=== PATIENT | male | born 1960 | race Caucasian/White ===

== ENCOUNTER 2021-10-25 20:09 | Emergency (ER) | payer MEDICARE ==
[2021-10-25] MEDS ORDERED: DUONEB 0.5-3 MG/3 ml Neb IH ONE ×2 (20:18→20:32)
[2021-10-25] MEDS ORDERED: solu-MEDROL 125 MG, Sterile H2O 10 ml 2 ML IV ONE ×2 (20:32)
[2021-10-25 20:33] LABS: A-aADO2 104; ABG HEMOGLOBIN 17.7; ABG POTASSIUM 3.3 (3.5-5.1); ARTERIAL BLD GAS O2 SATURATION 89.2 % (95-100); ARTERIAL BLOOD GAS BASE EXCESS 14.9 (-2.0-2.0); ARTERIAL BLOOD GAS FIO2 32 %; ARTERIAL BLOOD GAS PCO2 55 mmHg (35-45); ARTERIAL BLOOD GAS PO2 55 mmHg (75-100); ARTERIAL BLOOD GAS pH 7.48 (7.35-7.45); CARBOXYHEMOGLOBIN 2.1 % THgb (0.0-6.9); HGB O2 SAT 86.5 g/dF (94-100); Methhemoglobin 0.9 % (1.4-1.5)
[2021-10-25 20:34] LABS: ABG SITE RIGHT BRACHIAL
[2021-10-25 21:01] LABS: Absolute Neutrophil Ct (ANC) 5.03 (1.4-6.9); Basophil (Absolute #) 0.01 (0-0.4); Eosinophil % 0.1 % (0.00-5.0); Eosinophil (Absolute #) 0.01 (0-0.5); Hematocrit 56.9 % (42-50); Hemoglobin 18.1 gm/dl (12.5-18.0); Lymphocyte (Absolute #) 0.77 (1.0-4.6); Lymphocytes % 11.5 % (24.0-44.0); Mean Cell Volume 94.4 fl (78-100); Mean Corpuscular Hgb Concent. 31.8 g/dl (32-36); Mean Platelet Volume 9.4 fl (7.5-11.0); Monocyte (Absolute #) 0.87 (0.0-1.3); Neutrophil % 75.3 % (36.0-66.0); Platelet Count 184 K/mm3 (150-450); Red Blood Count 6.03 M/mm3 (4.1-5.6); Red Cell Distribution Width 13.8 % (11.5-14.0); White Blood Count 6.7 K/mm3 (4.0-10.5)
[2021-10-25] MEDS ORDERED: solu-MEDROL ONE (21:04)
[2021-10-25] MEDS ORDERED: Sterile H2O 10 ml IJ ONE (21:04)
[2021-10-25] MEDS ORDERED: Zithromax 500 MG/ 250 ML NaCl Premix 500 MG/250 ML IVPB IV STA (21:16)
[2021-10-25] MEDS ORDERED: ROCEPHIN 2 Gm-D5w 50ML BAG** 2 G/50 ML IVPB IV STA (21:16)
[2021-10-25 21:32] LABS: ALBUMIN 3.6 g/dL (3.5-5.0); ALKALINE PHOSPHATASE 54 U/L (38-126); ANION GAP 11.1 MEQ/L (5-15); BLOOD UREA NITROGEN 27 mg/dL (9-20); CHLORIDE 92 mmol/L (98-107); Calcium 8.1 mg/dL (8.4-10.2); Carbon Dioxide 38 mmol/L (22-30); Creatinine 1 0.99 mg/dL (0.66-1.25); EST GLOMERULAR FILTRATION RATE > 60.0 ML/MIN; Glucose 125 mg/dL (74-106); MAGNESIUM 2.4 mg/dL (1.6-2.3); NT PRO BNP 1000 pg/mL (0-900); Potassium 3.7 mmol/L (3.5-5.1); SGOT/AST 54 U/L (17-59); SGPT/ALT 26 U/L (0-50); SODIUM 138 mmol/L (137-145); Total Protein 6.9 g/dL (6.3-8.2)
[2021-10-25] MEDS ORDERED: ROCEPHIN 2 Gm-D5w 50ML BAG** 2 G/50 ML IVPB IV ONE (21:41)
[2021-10-25] MEDS ORDERED: Zithromax 500 MG/ 250 ML NaCl Premix 500 MG/250 ML IVPB IV ONE (21:41)
--- NOTE | 2021-10-25 21:58 | ERPHSYRPT ---
- History of Present Illness Time Seen by Provider: 10/25/21 20:16 Source: patient Exam Limitations: no limitations Patient Subjective Stated Complaint: "My oxygen is low at home." Triage Nursing Assessment: 61 y/o obese white male with PMH significant for COPD, CHF, asthma, and hypertension who requires supplemental home oxygen at 3 L/min via [place] present with reported increased dyspnea. He took a home COVID 19 binax test on 10/21/21 which was positive. He reported that he was monitoring his pulse oximetry at home which was running in the 70 - 80% range this morning. He denied headache, visual disturbances, chest pain, N/V/D, abdominal pain, dysuria, or hematochezia. Pupils 4mm bilateral. Symmetrical chest expansion. heart tones S1/S2 irregularly irregular without extra sounds. Lungs with significant inspiratory/expiratory wheezes bilaterally. Abdomen morbidly obese, non-distended and without peritoneal signs. Peripheral pulses +3 bilaterall. No noted dependent edema. Physician History: 61 years old male with history of COPD, asthma, chronic respiratory failure on 3 L oxygen, hypertension, obstructive sleep apnea, unvaccinated for COVID-19 presented in the ER with almost 2 weeks history of increasing cough and shortness of breath. He took his home COVID-19 test which was +4 days ago. He is monitoring his oxygen at home and reported since morning his oxygen is dropping and 70%. Patient reports minimal productive cough and wheezing and hurting to take a deep breath with some chest tightness and pressure. Subjective feeling of fever and chills. Timing/Duration: week(s) (2), gradual onset, worse Activities at Onset: activity, rest Severity of Dyspnea-Max: severe Severity of Dyspnea-Current: severe Modifying Factors: Improves With: oxygen, rest. Worsens With: activity, coughing Associated Symptoms: anxiety, cough, chest pain/discomfort, wheezing, painful breathing, productive cough, tightness Allergies/Adverse Reactions: No Known Drug Allergies Allergy (Unverified 10/25/21 20:13) Home Medications: Albuterol 17 gm IH Q6HPRN PRN 05/21/21 [History] Albuterol 2.5 mg/3 ml Neb [Proventil 2.5 mg/3 ml Neb] 2.5 mg IH DAILY PRN PRN 05/21/21 [History] Atorvastatin Calcium [Lipitor] 20 mg PO DAILY 05/21/21 [History] Diltiazem HCl [Diltiazem ER] 60 mg PO TID 05/21/21 [History] Hydrochlorothiazide 25 mg [hydroDIURIL 25 MG] 25 mg PO DAILY 05/21/21 [History] Metoprolol Tartrate 50 mg [Lopressor 50 MG] 50 mg PO BID 05/21/21 [History] Famotidine 40 mg PO DAILY 10/25/21 [History] Hx Tetanus, Diphtheria Vaccination/Date Given: No Travel Risk - International Travel Have you traveled outside of the country in past 3 weeks: No - Coronavirus Screening Are you exhibiting any of the following symptoms?: Yes Symptoms: Cough: New Onset, Shortness of Breath Close contact with a COVID-19 positive Pt in past 14-21 Days: No - Vaccine Status Have you recieved a Covid-19 vaccination: No - Review of Systems Constitutional: Fever, Chills, Fatigue, Weakness Eyes: No Symptoms Ears, Nose, & Throat: No Symptoms Respiratory: Cough, Dyspnea, Dyspnea on Exertion (ROWE), Wheezing Abdominal/Gastrointestinal: No Symptoms Genitourinary Symptoms: No Symptoms Musculoskeletal: No Symptoms Skin: No Symptoms Neurological: No Symptoms Psychological: No Symptoms Endocrine: No Symptoms Hematologic/Lymphatic: No Symptoms Immunological/Allergic: No Symptoms - Past Medical History Pertinent Past Medical History: Yes Neurological History: No Pertinent History ENT History: Other Cardiac History: Congestive Heart Failure, Hypertension Respiratory History: Asthma, COPD, Sleep Apnea Endocrine Medical History: No Pertinent History Musculoskeletal History: Arthritis GI Medical History: No Pertinent History History: No Pertinent History Psycho-Social History: No Pertinent History Male Reproductive Disorders: No Pertinent History Other Medical History: issues with eyes floaters? 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 bilateral knee scopes, broken foot. - Social History Smoking Status: Former smoker Exposure to second hand smoke: Yes Drug Use: none Patient Lives Alone: No - Nursing Vital Signs Nursing Vital Signs: Initial Vital Signs Temperature 96.6 F 10/25/21 20:09 Pulse Rate 86 10/25/21 20:09 Respiratory Rate 28 H 10/25/21 20:09 Blood Pressure 110/57 10/25/21 20:09 O2 Sat by Pulse Oximetry 73 L 10/25/21 20:09 Pain Scale Pain Intensity 0 - Physical Exam General Appearance: no apparent distress, alert Eye Exam: PERRL/EOMI, eyes nml inspection Ears, Nose, Throat Exam: hearing grossly normal, normal ENT inspection, normal pharynx Neck Exam: normal inspection, non-tender, full range of motion Respiratory Exam: diminished breath sounds, accessory muscle use, crackles/rales, rhonchi, wheezing Cardiovascular/Chest Exam: normal heart sounds, regular rate/rhythm Abdominal/Gastrointestinal Exam: soft, normal bowel sounds Extremity Exam: non-tender, normal range of motion Neurologic Exam: alert, oriented x 3, cooperative, normal mood/affect Skin Exam: normal color SpO2 Interpretation: O2 applied SpO2: 95 O2 Delivery: Nasal Cannula - Course EKG Interpreted by Me: RATE ([id number]), Sinus Tach, NORMAL AXIS, NORMAL INTERVALS, Non-specific ST Changes Ordered Tests: Active Orders 24 hr Category Date Time Status Brick Veneer Maker STAT Care 10/25/21 20:33 Active EKG-ER Only STAT Care 10/25/21 20:32 Active IV Insertion STAT Care 10/25/21 20:32 Active CHEST 1 VIEW (PORTABLE) Stat Exams 10/25/21 20:33 Taken CHEST WITH CONTRAST [CT] Stat Exams 10/25/21 21:48 Taken ABG [ARTERIAL BLOOD GASES] Stat Lab 10/25/21 20:28 Completed BLOOD CULTURE Stat Lab 10/25/21 20:50 Received CBC W DIFF Stat Lab 10/25/21 20:40 Completed CMP Stat Lab 10/25/21 20:40 Completed D-DIMER QUANTITATIVE Stat Lab 10/25/21 20:40 Completed Lactic Acid Stat Lab 10/25/21 20:37 Completed MAGNESIUM Stat Lab 10/25/21 20:40 Completed NT PRO BNP Stat Lab 10/25/21 20:40 Completed TROPONIN Q3H Lab 10/25/21 20:40 Completed TROPONIN Q3H Lab 10/25/21 23:45 Ordered TROPONIN Q3H Lab 10/26/21 02:45 Ordered TROPONIN Q3H Lab 10/26/21 05:45 Ordered TROPONIN Q3H Lab 10/26/21 08:45 Ordered UA W/RFX UR CULTURE Stat Lab 10/25/21 20:32 Ordered BiPap/CPAP STAT RT 10/25/21 20:32 Active Oxygen Oxymask LPM 10 lpm RT 10/25/21 21:39 Active Respiratory Therapy Assessment DAILY RT 10/25/21 21:26 Active Medication Summary Discontinued Medications Generic Name Dose Route Start Last Admin Trade Name Dashawn PRN Reason Stop Dose Admin Albuterol/Ipratropium Confirm 10/25/21 20:18 Ipratropium/Albuterol Sulfate 3 Ml Ampul.Neb Administered 10/25/21 20:19 Dose 3 ml IH .STK-MED ONE Albuterol/Ipratropium 3 ml 10/25/21 20:32 10/25/21 20:35 Ipratropium/Albuterol Sulfate 3 Ml Ampul.Neb IH 10/25/21 20:33 3 ml STAT ONE Administration Methylprednisolone Sodium 0 mg 10/25/21 20:32 10/25/21 21:07 Succinate 125 mg/ Sterile IV 10/25/21 20:33 125 mg Water 2 ml STAT ONE Administration Azithromycin 500 mg in 250 mls @ 250 mls/hr 10/25/21 21:16 10/25/21 22:34 Zithromax 500 Mg/ 250 Ml Nacl Premix IV 10/25/21 22:15 250 ml/hr STAT STA 250 mls/hr Administration Ceftriaxone Sodium/Dextrose 2 g in 50 mls @ 100 mls/hr 10/25/21 21:16 10/25/21 23:01 Rocephin 2 Gm-D5w 50ml Bag IV 10/25/21 21:45 Infused STAT STA Infusion Azithromycin Confirm 10/25/21 21:41 Zithromax 500 Mg/ 250 Ml Nacl Premix Administered 10/25/21 21:42 Dose 500 mg in 250 mls @ ud IV .STK-MED ONE Ceftriaxone Sodium/Dextrose Confirm 10/25/21 21:41 Rocephin 2 Gm-D5w 50ml Bag Administered 10/25/21 21:42 Dose 2 g in 50 mls @ ud IV .STK-MED ONE Methylprednisolone Sodium Succinate Confirm 10/25/21 21:04 Methylprednis Sod Succ 125 Mg/2 Ml Vial Administered 10/25/21 21:05 Dose 125 mg .ROUTE .STK-MED ONE Sterile Water Confirm 10/25/21 21:04 Water For Injection,Sterile 10 Ml Vial Administered 10/25/21 21:05 Dose 10 ml IJ .ZAPR ONE Lab/Rad Data: Laboratory Result Diagrams 10/25/21 20:40 10/25/21 20:40 Laboratory Results 10/25/21 10/25/21 10/25/21 Range/Units 20:40 20:40 20:40 WBC (4.0-10.5) K/mm3 RBC (4.1-5.6) M/mm3 Hgb (12.5-18.0) gm/dl Hct (42-50) % MCV (78-100) fl MCH (26-32) pg MCHC (32-36) g/dl RDW (11.5-14.0) % Plt Count (150-450) K/mm3 MPV (7.5-11.0) fl Gran % (36.0-66.0) % Eos # (Auto) (0-0.5) Absolute Lymphs (auto) (1.0-4.6) Absolute Monos (auto) (0.0-1.3) Lymphocytes % (24.0-44.0) % Monocytes % (0.0-12.0) % Eosinophils % (0.00-5.0) % Basophils % (0.0-0.4) % Absolute Granulocytes (1.4-6.9) Basophils # (0-0.4) D-Dimer 1088 H* (215-500) ng/mL Puncture Site pCO2 (35-45) mmHg pO2 (75-100) mmHg Base Excess (-2.0-2.0) O2 Saturation (94-100) g/dF ABG pH (7.35-7.45) ABG HCO3 (22-28) ABG O2 Sat (Measured) (95-100) % Addison Test A-a Gradient a/A Ratio Hemoglobin Carboxyhemoglobin (0.0-6.9) % THgb Methemoglobin (1.4-1.5) % Potassium 3.7 (3.5-5.1) Temperature C POC O2 Flow Rate % Sodium 138 (137-145) mmol/L Chloride 92 L (98-107) mmol/L Carbon Dioxide 38 H (22-30) mmol/L Anion Gap 11.1 (5-15) MEQ/L BUN 27 H (9-20) mg/dL Creatinine 0.99 (0.66-1.25) mg/dL Estimated GFR > 60.0 ML/MIN Glucose 125 H (74-106) mg/dL Lactic Acid (0.4-2.0) Calcium 8.1 L (8.4-10.2) mg/dL Magnesium 2.4 H (1.6-2.3) mg/dL Total Bilirubin 1.40 H (0.2-1.3) mg/dL AST 54 (17-59) U/L ALT 26 (0-50) U/L Alkaline Phosphatase 54 (38-126) U/L Troponin I 0.022 (0.000-0.034) ng/mL NT-Pro-B Natriuret Pep 1000 H (0-900) pg/mL Serum Total Protein 6.9 (6.3-8.2) g/dL Albumin 3.6 (3.5-5.0) g/dL 10/25/21 10/25/21 10/25/21 Range/Units 20:40 20:37 20:28 WBC 6.7 (4.0-10.5) K/mm3 RBC 6.03 H (4.1-5.6) M/mm3 Hgb 18.1 H (12.5-18.0) gm/dl Hct 56.9 H (42-50) % MCV 94.4 (78-100) fl MCH 30.0 (26-32) pg MCHC 31.8 L (32-36) g/dl RDW 13.8 (11.5-14.0) % Plt Count 184 (150-450) K/mm3 MPV 9.4 (7.5-11.0) fl Gran % 75.3 H (36.0-66.0) % Eos # (Auto) 0.01 (0-0.5) Absolute Lymphs (auto) 0.77 L (1.0-4.6) Absolute Monos (auto) 0.87 (0.0-1.3) Lymphocytes % 11.5 L (24.0-44.0) % Monocytes % 13.0 H (0.0-12.0) % Eosinophils % 0.1 (0.00-5.0) % Basophils % 0.1 (0.0-0.4) % Absolute Granulocytes 5.03 (1.4-6.9) Basophils # 0.01 (0-0.4) D-Dimer (215-500) ng/mL Puncture Site RIGHT BRACHIAL pCO2 55 H (35-45) mmHg pO2 55 L (75-100) mmHg Base Excess 14.9 H (-2.0-2.0) O2 Saturation 86.5 L (94-100) g/dF ABG pH 7.48 H (7.35-7.45) ABG HCO3 41.0 H* (22-28) ABG O2 Sat (Measured) 89.2 L (95-100) % Addison Test NOT APPLICABLE A-a Gradient 104 a/A Ratio 0.35 Hemoglobin 17.7 Carboxyhemoglobin 2.1 (0.0-6.9) % THgb Methemoglobin 0.9 L (1.4-1.5) % Potassium 3.3 L (3.5-5.1) Temperature 37.0 C POC O2 Flow Rate 32 % Sodium (137-145) mmol/L Chloride (98-107) mmol/L Carbon Dioxide (22-30) mmol/L Anion Gap (5-15) MEQ/L BUN (9-20) mg/dL Creatinine (0.66-1.25) mg/dL Estimated GFR ML/MIN Glucose (74-106) mg/dL Lactic Acid 1.9 (0.4-2.0) Calcium (8.4-10.2) mg/dL Magnesium (1.6-2.3) mg/dL Total Bilirubin (0.2-1.3) mg/dL AST (17-59) U/L ALT (0-50) U/L Alkaline Phosphatase (38-126) U/L Troponin I (0.000-0.034) ng/mL NT-Pro-B Natriuret Pep (0-900) pg/mL Serum Total Protein (6.3-8.2) g/dL Albumin (3.5-5.0) g/dL - Progress Progress: improved Air Movement: fair Progress Note: 10/25/21 23:10 61 years old is evaluated for worsening shortness of breath with a positive home COVID-19. Patient was in 70%'s on presentation in the ER, given DuoNeb, Solu- Medrol and placed on BiPAP. Chest x-ray showed bilateral airspace disease consistent with COVID-19. He is also given a dose of antibiotics as well. Patient has a normal white count, negative initial troponin and EKG showed supraventricular bigeminy without any ST elevations. Patient is feeling much better on reevaluation. Has elevated D-dimers, CTA chest is obtained with pending reports. Discussed with Dr. Tobin, reviewed history, work-up and recommended transfer to facility with pulmonology services. Discussed with nurse practitioner for Dr. Mercado at [facility] and patient is excepted on his behalf. Blood Culture(s) Obtained: Yes Antibiotics given: Yes Discussed with : Steffi Counseled pt/family regarding: lab results, diagnosis, rad results - Departure Departure Disposition: Transfer Clinical Impression: Bilateral pneumonia, COVID-19 Respiratory failure Qualifiers: Chronicity: acute on chronic Respiratory failure complication: hypoxia Qualified Code(s): J96.21 - Acute and chronic respiratory failure with hypoxia Condition: Fair Critical Care Time: Yes Critical Care Time(excluding separately billable procedures): Critical 30-74 mins Referrals: TAJ SANTIZO MD [Primary Care Provider] - Follow up/PCP as directed
[2021-10-25 23:03] VITALS: BP 120/87; PULSE 90
[2021-10-25 23:14] VITALS: O2SAT 95
--- NOTE | 2021-10-26 07:15 | XRAY ---
Indication: Short of breath. Comparison: October 31, 2010. Portable chest demonstrates new marked diffuse bilateral patchy consolidating/nonconsolidating airspace disease. Heart is borderline enlarged. Stable chronic left hemidiaphragm elevation, osteopenia, multilevel degenerative spondylosis, and lower cervical fusion hardware.
--- NOTE | 2021-10-26 07:40 | XRAY ---
Indication: Short of breath. Elevated d-dimer. Conventional contrast enhanced CTA chest performed using 100 cc Isovue 370 contrast and PE protocol. Two-dimensional sagittal and coronal reformatted images obtained. Additional 3-dimensional reformatted images obtained using a separate workstation. Comparison: November 04, 2010. There is good opacification of the pulmonary arteries to include the lobar and segmental branches. No pulmonary embolus. Heart remains borderline enlarged. Aorta is again mildly arteriosclerotic without aneurysm/dissection. No pathologic mediastinal/hilar lymphadenopathy. Lungs demonstrates new markedly diffuse bilateral consolidating/nonconsolidating airspace disease, left greater than right. No effusion or pneumothorax. Stable chronic left hemidiaphragmatic elevation. Bony thorax intact again with mild/moderate degenerative changes throughout the spine and incompletely visualized C6-7 C7 anterior fusion hardware. Limited upper abdomen again demonstrates mild fatty liver and bilateral adrenal hypertrophy. Impression: 1. Continued negative pulmonary embolus. Mildly arteriosclerotic aorta without aneurysm/dissection. 2. Markedly diffuse bilateral consolidating/nonconsolidating airspace disease. Rule out Covid 19 pneumonia. 3. Again chronic left hemidiaphragm elevation, borderline cardiomegaly, fatty liver, bilateral adrenal hypertrophy, and chronic bony findings. Comment: Preliminary interpretation by [facility]. No critical discrepancy.
== END 2021-10-25 23:46 | disposition short-term general hospital (02) ==
LOC: ED 20:09
DX: U07.1 COVID-19 (principal); J12.82 Pneumonia due to coronavirus disease 2019; J96.21 Acute and chronic respiratory failure with hypoxia; Z99.81 Dependence on supplemental oxygen; J44.9 Chronic obstructive pulmonary disease, unspecified; I11.0 Hypertensive heart disease with heart failure; I50.9 Heart failure, unspecified; G47.33 Obstructive sleep apnea (adult) (pediatric); R05.9 Cough, unspecified; Z79.899 Other long term (current) drug therapy
CPT/HCPCS: 36000; 36415; 36600; 71045; 71260; 71275; 80053; 82375; 82803; 83605; 83735; 83880; 84484; 85025; 85379; 87040; 93005; 93041; 94002; 94640; 96374; 99285; 99291; J0456; J0696; J2930; A9270-GY